=== PATIENT | male | born 1970 | race Caucasian/White ===

== ENCOUNTER 2017-05-12 15:29 | Emergency (ER) | payer SELFPAY ==
[~2017-05-12] VITALS: Ht 180.3 cm; Wt 127.0 kg
[~2017-05-12 15:29] MED LIST: ALBUTEROL 3 ML 33 ML INH; ALBUTEROL0.09 MG/A1 INH; AMOXICILLIN500 MG PO; ANAPROX DS550 MG PO; ATROVENT I0.5 MG/2.1 INH; B-1100 M1 PO; DARVOCET N 1001 TAB PO; DAYPRO600 M1 PO; FLAGYL500 MG PO; HYDROCODONE BIT1 T11 PO; KEFLEX500 MG PO; KETOROLAC10 MG PO; LEVAQUIN750 M1 PO; MEDROL DOSEPAK4 MG PO; MOTRIN800 MG PO; NAPROSYN500 MG PO; NEBULIZER; NKHM; PERCOCET 325 MG1 TA2 PO; PREDNISONE10 MG PO; PREDNISONE20 M1 PO; PRILOSEC40 M1 PO; SYMBICORT1 AE1 INH; VICODIN 5/500 505 MG PO; ZITHROMAX250 MG PO
[2017-05-12] MEDS ORDERED: COMBIVENT RESPIM4 GM INH (16:33)
[2017-05-12] MEDS ORDERED: PREDNISONE50 MG PO (16:33)
== END 2017-05-12 16:38 | disposition home or self-care (01) ==
LOC: ED 15:29
DX: J20.9 Acute bronchitis, unspecified (principal); J45.909 Unspecified asthma, uncomplicated; F17.210 Nicotine dependence, cigarettes, uncomplicated; K21.9 Gastro-esophageal reflux disease without esophagitis; E11.9 Type 2 diabetes mellitus without complications; M19.079 Primary osteoarthritis, unspecified ankle and foot; E66.9 Obesity, unspecified; Z68.39 Body mass index [BMI] 39.0-39.9, adult; Z79.899 Other long term (current) drug therapy

== ENCOUNTER 2017-06-07 05:23 | Emergency (ER) | payer SELFPAY ==
[~2017-06-07] VITALS: Ht 177.8 cm; Wt 117.9 kg
[~2017-06-07 05:23] MED LIST changes: +COMBIVENT RESPIM4 GM INH; +PREDNISONE50 MG PO
[2017-06-07] MEDS ORDERED: ZITHROMAX250 MG PO (06:12)
== END 2017-06-07 06:43 | disposition home or self-care (01) ==
LOC: ED 05:23
DX: J20.9 Acute bronchitis, unspecified (principal); E11.9 Type 2 diabetes mellitus without complications; K21.9 Gastro-esophageal reflux disease without esophagitis; M19.079 Primary osteoarthritis, unspecified ankle and foot; E66.9 Obesity, unspecified; F17.210 Nicotine dependence, cigarettes, uncomplicated; Z68.39 Body mass index [BMI] 39.0-39.9, adult; Z79.899 Other long term (current) drug therapy

== ENCOUNTER 2017-06-10 09:20 | Emergency (ER) | payer SELFPAY ==
[~2017-06-10] VITALS: Ht 177.8 cm; Wt 127.0 kg
[2017-06-10 10:14] LABS: BASO % 0.2 % (0.0-1.0); EOS % 0.2 % (1.0-4.0); HEMATOCRIT 43.7 % (42.0-52.0); HEMOGLOBIN 14.9 g/dl (14.0-18.0); LYMPH % 18.7 % (27.0-41.0); MEAN CORPUSCULAR HGB CONC 34.1 g/dl (33.0-37.0); MEAN PLATELET VOLUME 10.2 fl (9.6-12.3); MONO # 0.4 10*3/uL (0.1-1.0); NEUT # 3.8 10*3/uL (2.3-7.9); NEUT % 73.3 % (47.0-73.0); PLATELET COUNT AUTOMATED 133 10*3/uL (130-400); RED BLOOD COUNT 4.65 10*6/uL (4.50-5.90); RED CELL DISTRI WIDTH 13.4 % (0-14.5); WHITE BLOOD COUNT 5.1 10*3/uL (4.8-10.8)
[2017-06-10 10:30] LABS: ALBUMIN 3.4 gm/dl (3.1-4.5); ALKALINE PHOSPHATASE 52 U/L (45-117); BUN 15 mg/dl (7-24); CHLORIDE 97 mmol/L (98-107); CREATININE 1.18 mg/dL (0.70-1.30); LIPASE 376 U/L (73-393); POTASSIUM 3.7 mmol/L (3.5-5.1); SGOT/AST 86 IU/L (3-35); SGPT/ALT 51 U/L (12-78); SODIUM 133 mmol/L (136-145)
[2017-06-10] MEDS ORDERED: Zofran4 MG PO (12:03)
== END 2017-06-10 12:10 | disposition home or self-care (01) ==
LOC: ED 09:20
PROVIDERS: Emergency Medicine
DX: A08.4 Viral intestinal infection, unspecified (principal); R07.89 Other chest pain; E11.9 Type 2 diabetes mellitus without complications; K21.9 Gastro-esophageal reflux disease without esophagitis; M19.079 Primary osteoarthritis, unspecified ankle and foot; E66.9 Obesity, unspecified; F17.200 Nicotine dependence, unspecified, uncomplicated; Z68.39 Body mass index [BMI] 39.0-39.9, adult

== ENCOUNTER 2017-08-14 17:08 | Emergency (ER) | payer MEDICAID ==
[~2017-08-14] VITALS: Wt 127.0 kg
[~2017-08-14 17:08] MED LIST changes: +Zofran4 MG PO
[2017-08-14] MEDS ORDERED: NAPROSYN500 MG PO (17:19)
[2017-08-14] MEDS ORDERED: CHLORZOXAZONE500 M2 PO (17:19)
[2017-08-14] MEDS ORDERED: NORCO 5-325 TA1 EACH PO (18:31)
== END 2017-08-14 18:36 | disposition home or self-care (01) ==
LOC: ED 17:08
DX: S22.32XA Fracture of one rib, left side, initial encounter for closed fracture (principal); R03.0 Elevated blood-pressure reading, without diagnosis of hypertension; F17.210 Nicotine dependence, cigarettes, uncomplicated; G89.29 Other chronic pain; E11.9 Type 2 diabetes mellitus without complications; K21.9 Gastro-esophageal reflux disease without esophagitis; E66.9 Obesity, unspecified; Z68.39 Body mass index [BMI] 39.0-39.9, adult; Z79.899 Other long term (current) drug therapy; X50.1XXA Overexertion from prolonged static or awkward postures, initial encounter; Y93.89 Activity, other specified; Y92.89 Other specified places as the place of occurrence of the external cause; Y99.9 Unspecified external cause status

== ENCOUNTER → 2019-02-20 | Outpatient (CLI) | payer BC ==
[~2019-02-20] MED LIST changes: +CHLORZOXAZONE500 M2 PO; +NORCO 5-325 TA1 EACH PO
== END | disposition home or self-care (01) ==
LOC: LAB 13:10
DX: N52.1 Erectile dysfunction due to diseases classified elsewhere (principal)

== ENCOUNTER 2020-02-26 23:05 | Emergency (ER) | payer BC ==
[~2020-02-26] VITALS: Wt 113.4 kg
[2020-02-26 23:46] LABS: BASO # 0.1 10*3/uL (0.0-0.1); BASO % 0.8 % (0.0-1.0); EOS # 0.2 10*3/uL (0.0-0.4); HEMATOCRIT 51.2 % (42.0-52.0); LYMPH # 3.7 10*3/uL (1.3-4.4); LYMPH % 41.8 % (27.0-41.0); MEAN CELL VOLUME 95.7 fl (80.0-94.0); MEAN CORPUSCULAR HGB 31.6 pg (27.0-31.0); MEAN PLATELET VOLUME 9.9 fl (9.6-12.3); MONO # 0.7 10*3/uL (0.1-1.0); MONO % 7.3 % (3.0-9.0); NEUT # 4.3 10*3/uL (2.3-7.9); NEUT % 47.8 % (47.0-73.0); PLATELET COUNT AUTOMATED 223 10*3/uL (130-400); RED BLOOD COUNT 5.35 10*6/uL (4.50-5.90); RED CELL DISTRI WIDTH 13.5 % (0-14.5); WHITE BLOOD COUNT 8.9 10*3/uL (4.8-10.8)
[2020-02-27 00:01] LABS: ALBUMIN 3.9 gm/dl (3.1-4.5); ALKALINE PHOSPHATASE 69 U/L (45-117); BUN 4 mg/dl (7-24); CHLORIDE 112 mmol/L (98-107); CREATININE 0.86 mg/dL (0.70-1.30); POTASSIUM 3.3 mmol/L (3.5-5.1); SGOT/AST 32 IU/L (3-35); SGPT/ALT 50 U/L (12-78); SODIUM 140 mmol/L (136-145); TOTAL PROTEIN 8.2 gm/dL (6.4-8.2)
[2020-02-27 00:02] LABS: TROPONIN I < 0.015 ng/ml (<0.045)
== END 2020-02-27 14:09 | disposition home or self-care (01) ==
LOC: ED 23:05
PROVIDERS: Emergency Medicine
DX: F10.129 Alcohol abuse with intoxication, unspecified (principal); K21.9 Gastro-esophageal reflux disease without esophagitis; Z79.899 Other long term (current) drug therapy; Y90.8 Blood alcohol level of 240 mg/100 ml or more

== ENCOUNTER 2021-02-02 22:55 | Emergency (ER) | payer BC ==
[2021-02-02 23:23] LABS: BASO % 0.4 % (0.0-1.0); EOS # 0.1 10*3/uL (0.0-0.4); EOS % 1.1 % (1.0-4.0); HEMATOCRIT 47.4 % (42.0-52.0); LYMPH # 3.6 10*3/uL (1.3-4.4); LYMPH % 36.3 % (27.0-41.0); MEAN CELL VOLUME 97.1 fl (80.0-94.0); MEAN CORPUSCULAR HGB 32.6 pg (27.0-31.0); MEAN CORPUSCULAR HGB CONC 33.5 g/dl (33.0-37.0); MEAN PLATELET VOLUME 9.4 fl (9.6-12.3); MONO # 0.8 10*3/uL (0.1-1.0); MONO % 8.1 % (3.0-9.0); NEUT # 5.4 10*3/uL (2.3-7.9); NEUT % 53.7 % (47.0-73.0); PLATELET COUNT AUTOMATED 220 10*3/uL (130-400); RED BLOOD COUNT 4.88 10*6/uL (4.50-5.90); RED CELL DISTRI WIDTH 13.4 % (0-14.5)
[2021-02-02 23:41] LABS: ALKALINE PHOSPHATASE 59 U/L (45-117); BUN 7 mg/dl (7-24); CHLORIDE 106 mmol/L (98-107); CREATININE 0.94 mg/dL (0.70-1.30); POTASSIUM 3.6 mmol/L (3.5-5.1); SGOT/AST 24 IU/L (3-35); SGPT/ALT 49 U/L (12-78); SODIUM 139 mmol/L (136-145); TOTAL PROTEIN 8.2 gm/dL (6.4-8.2)
== END 2021-02-03 02:26 | disposition left against medical advice (07) ==
LOC: ED 22:55
PROVIDERS: Internal Medicine
DX: F10.129 Alcohol abuse with intoxication, unspecified (principal); F17.210 Nicotine dependence, cigarettes, uncomplicated; Y90.9 Presence of alcohol in blood, level not specified

== ENCOUNTER 2021-02-03 03:24 | Emergency (ER) | payer BC | END 2021-02-03 11:08 | disposition home or self-care (01) | LOC: ED 03:24 | DX: F10.129 Alcohol abuse with intoxication, unspecified (principal); R42 Dizziness and giddiness; R11.0 Nausea; F17.210 Nicotine dependence, cigarettes, uncomplicated; Y90.9 Presence of alcohol in blood, level not specified ==

== ENCOUNTER → 2021-09-19 | Outpatient (CLI) | payer SELFPAY ==
[2021-09-19 12:03] LABS: TOTAL PROTEIN 7.6 gm/dL (6.4-8.2)
[2021-09-19 12:04] LABS: FREE T4 0.89 ng/dl (0.76-1.46)
[2021-09-19 12:10] LABS: THYROID STIM HORMONE (HS) 4.38 uIU/ml (0.358-4.75)
== END | disposition home or self-care (01) ==
LOC: LAB 11:25
PROVIDERS: ATTEND Psychiatry & Neurology Psychiatry
DX: Z51.81 Encounter for therapeutic drug level monitoring (principal); Z79.899 Other long term (current) drug therapy; F41.9 Anxiety disorder, unspecified; F10.10 Alcohol abuse, uncomplicated

== ENCOUNTER 2021-11-05 13:30 | Emergency (ER) | payer MEDICAID | END 2021-11-05 14:45 | disposition left against medical advice (07) | LOC: ED 13:30 | DX: R05.9 Cough, unspecified (principal); F17.210 Nicotine dependence, cigarettes, uncomplicated ==

== ENCOUNTER → 2021-12-05 | Outpatient (CLI) | payer MEDICAID ==
[2021-12-05 10:11] LABS: HEMATOCRIT 44.8 % (42.0-52.0); MEAN CELL VOLUME 97.2 fl (80.0-94.0); MEAN CORPUSCULAR HGB 32.3 pg (27.0-31.0); MEAN CORPUSCULAR HGB CONC 33.3 g/dl (33.0-37.0); RED BLOOD COUNT 4.61 10*6/uL (4.50-5.90); RED CELL DISTRI WIDTH 13.2 % (0-14.5); WHITE BLOOD COUNT 6.8 10*3/uL (4.8-10.8)
[2021-12-05 10:38] LABS: ALKALINE PHOSPHATASE 71 U/L (45-117); BUN 18 mg/dl (7-24); CHLORIDE 107 mmol/L (98-107); CHOLESTEROL 136 mg/dL (<200); CREATININE 0.98 mg/dL (0.70-1.30); LDL CHOLESTEROL 67 mg/dL (9-159); POTASSIUM 4.1 mmol/L (3.5-5.1); SGOT/AST 20 IU/L (3-35); SGPT/ALT 40 U/L (12-78); SODIUM 138 mmol/L (136-145); TOTAL PROTEIN 7.3 gm/dL (6.4-8.2); TRIGLYCERIDES 161 mg/dl (<150)
[2021-12-07 16:06] LABS: TESTOSTERONE FREE, (DIRECT) 10.1 pg/mL (7.2-24.0)
== END ==
LOC: LAB 09:45
PROVIDERS: ATTEND Physician Assistant
DX: E29.1 Testicular hypofunction (principal); F17.210 Nicotine dependence, cigarettes, uncomplicated; K21.9 Gastro-esophageal reflux disease without esophagitis; E66.01 Morbid (severe) obesity due to excess calories

== ENCOUNTER 2022-01-15 02:49 | Emergency (ER) | payer MEDICAID ==
[~2022-01-15] VITALS: Ht 180.3 cm; Wt 121.6 kg
[2022-01-15 03:05] LABS: BASO # 0.1 10*3/uL (0.0-0.1); BASO % 0.8 % (0.0-1.0); EOS # 0.2 10*3/uL (0.0-0.4); EOS % 2.6 % (1.0-4.0); HEMATOCRIT 48.4 % (42.0-52.0); LYMPH # 3.8 10*3/uL (1.3-4.4); MEAN CELL VOLUME 92.7 fl (80.0-94.0); MEAN CORPUSCULAR HGB 31.6 pg (27.0-31.0); MEAN CORPUSCULAR HGB CONC 34.1 g/dl (33.0-37.0); MEAN PLATELET VOLUME 9.3 fl (9.6-12.3); MONO # 0.8 10*3/uL (0.1-1.0); MONO % 9.4 % (3.0-9.0); NEUT # 3.6 10*3/uL (2.3-7.9); NEUT % 41.8 % (47.0-73.0); PLATELET COUNT AUTOMATED 247 10*3/uL (130-400); RED BLOOD COUNT 5.22 10*6/uL (4.50-5.90); RED CELL DISTRI WIDTH 13.2 % (0-14.5); WHITE BLOOD COUNT 8.5 10*3/uL (4.8-10.8)
[2022-01-15 03:20] LABS: ACT PARTIAL THROMBO TIME 28.5 SECONDS (20.0-32.1)
[2022-01-15 03:37] LABS: BILIRUBIN Negative (Negative); BLOOD Negative (Negative); CLARITY Clear (Clear); COLOR Yellow (Yellow); GLUCOSE Negative (Negative); KETONE Negative (Negative); LEUKO ESTERASE Negative (Negative); NITRITE Negative (Negative); PH 5.5 (4.5-8.0); SPECIFIC GRAVITY <= 1.005 (1.001-1.030); UROBILINOGEN 0.2 E.U./dl (0.0-1.0)
[2022-01-15 03:40] LABS: ALKALINE PHOSPHATASE 68 U/L (45-117); BUN 6 mg/dl (7-24); CHLORIDE 106 mmol/L (98-107); CREATININE 0.94 mg/dL (0.70-1.30); POTASSIUM 3.7 mmol/L (3.5-5.1); SGOT/AST 34 IU/L (3-35); SGPT/ALT 52 U/L (12-78); SODIUM 137 mmol/L (136-145); TOTAL PROTEIN 8.3 gm/dL (6.4-8.2)
[2022-01-15 03:48] LABS: WBC 0-2 wbc/hpf (0-5)
== END 2022-01-15 04:37 | disposition left against medical advice (07) ==
LOC: ED 02:49
PROVIDERS: Emergency Medicine; Obstetrics & Gynecology
DX: T80.89XA Other complications following infusion, transfusion and therapeutic injection, initial encounter (principal); R50.9 Fever, unspecified; F41.9 Anxiety disorder, unspecified; R06.02 Shortness of breath; F17.210 Nicotine dependence, cigarettes, uncomplicated; Y92.89 Other specified places as the place of occurrence of the external cause

== ENCOUNTER → 2022-02-03 | Outpatient (CLI) | payer MEDICAID ==
[2022-02-03 09:40] LABS: TOTAL PROTEIN 7.7 gm/dL (6.4-8.2)
[2022-02-03 09:46] LABS: THYROID STIM HORMONE (HS) 4.59 uIU/ml (0.358-4.75)
[2022-02-03 16:44] LABS: BILIRUBIN 1+ (Negative); BLOOD Negative (Negative); CLARITY Clear (Clear); COLOR Dark Yellow (Yellow); GLUCOSE Negative (Negative); KETONE Trace (Negative); LEUKO ESTERASE Negative (Negative); NITRITE Negative (Negative); SPECIFIC GRAVITY >= 1.030 (1.001-1.030)
[2022-02-03 16:53] LABS: MUCOUS 2+; RBC 0-2 rbc/hpf (0-2)
[2022-02-04 04:06] LABS: PROLACTIN 8.2 ng/mL (4.0-15.2); SEX HORMONE BINDING GLOBULIN 21.4 nmol/L (19.3-76.4)
== END | disposition home or self-care (01) ==
LOC: LAB 08:52
PROVIDERS: ATTEND Nurse Practitioner Family
DX: N42.9 Disorder of prostate, unspecified (principal); E29.1 Testicular hypofunction

== ENCOUNTER → 2022-03-11 | Outpatient (CLI) | payer MEDICAID | END | disposition home or self-care (01) | LOC: CT 03-05 08:00 | PROVIDERS: ATTEND Podiatrist | DX: M19.072 Primary osteoarthritis, left ankle and foot (principal); M19.071 Primary osteoarthritis, right ankle and foot; M25.771 Osteophyte, right ankle; M25.772 Osteophyte, left ankle; M79.9 Soft tissue disorder, unspecified ==

== ENCOUNTER 2023-11-15 11:38 | Emergency (ER) | payer MEDICAID ==
[~2023-11-15] VITALS: Ht 180.3 cm; Wt 136.1 kg
[2023-11-15] MEDS ORDERED: methylPREDNISolone sod succ 125 MG VIAL IM ONE (14:20)
[2023-11-15] MEDS ORDERED: Ketorolac Tromethamine 30 MG/ML VIAL IM ONE (14:20)
[2023-11-15] MEDS ORDERED: CYCLOBENZAPRINE5 M3 PO (14:20)
== END 2023-11-15 14:25 | disposition home or self-care (01) ==
LOC: ED 11:38
DX: M54.41 Lumbago with sciatica, right side (principal); M25.561 Pain in right knee; M25.551 Pain in right hip; K21.9 Gastro-esophageal reflux disease without esophagitis; I10 Essential (primary) hypertension; F17.210 Nicotine dependence, cigarettes, uncomplicated; F10.10 Alcohol abuse, uncomplicated; Z98.890 Other specified postprocedural states

== ENCOUNTER → 2023-12-06 | Outpatient (CLI) | payer MEDICAID ==
[~2023-12-06] MED LIST changes: +CYCLOBENZAPRINE5 M3 PO
== END ==
LOC: MRI 02:47
PROVIDERS: ATTEND Nurse Practitioner Acute Care
DX: M51.17 Intervertebral disc disorders with radiculopathy, lumbosacral region (principal); M47.27 Other spondylosis with radiculopathy, lumbosacral region

== ENCOUNTER 2024-02-07 20:41 | Emergency (ER) | payer MEDICAID ==
[~2024-02-07] VITALS: Ht 180.3 cm; Wt 133.4 kg
[2024-02-07] MEDS ORDERED: SODIUM CHLORIDE 0.9% 1,000 ML IV ONE ×2 (20:55→23:30)
[2024-02-07] MEDS ORDERED: Thiamine 200 MG/2 ML VIAL IV ONE (20:55)
[2024-02-07 21:09] LABS: BASO % 0.5 % (0.0-1.0); EOS # 0.1 10*3/uL (0.0-0.4); EOS % 1.7 % (1.0-4.0); HEMATOCRIT 48.7 % (42.0-52.0); LYMPH # 3.1 10*3/uL (1.3-4.4); LYMPH % 40.8 % (27.0-41.0); MEAN CELL VOLUME 95.1 fl (80.0-94.0); MEAN CORPUSCULAR HGB 31.6 pg (27.0-31.0); MEAN CORPUSCULAR HGB CONC 33.3 g/dl (33.0-37.0); MEAN PLATELET VOLUME 9.4 fl (9.6-12.3); MONO # 0.6 10*3/uL (0.1-1.0); MONO % 7.5 % (3.0-9.0); NEUT # 3.7 10*3/uL (2.3-7.9); NEUT % 49.1 % (47.0-73.0); PLATELET COUNT AUTOMATED 230 10*3/uL (130-400); RED BLOOD COUNT 5.12 10*6/uL (4.50-5.90); RED CELL DISTRI WIDTH 13.2 % (0-14.5); WHITE BLOOD COUNT 7.6 10*3/uL (4.8-10.8)
[2024-02-07] MEDS ORDERED: Ondansetron Hydrochloride 4 MG TAB SL ONE (21:45)
[2024-02-07 21:56] LABS: BUN 6 mg/dl (9-23); CHLORIDE 104 mmol/L (98-107); POTASSIUM 3.5 mmol/L (3.4-5.1)
[2024-02-07 21:59] LABS: ETHYL ALCOHOL 346.4 mg/dl (<3)
[2024-02-15] MEDS ORDERED: OMEPRAZOLE MAGN20 MG PO (12:56)
[2024-02-15] MEDS ORDERED: CEPHALEXIN500 M1 PO (16:15)
[2024-02-15] MEDS ORDERED: GOOD NEIGHBOR M25 M1 PO (17:06)
[2024-02-15] MEDS ORDERED: Ondansetron4 MG PO (17:06)
== END 2024-02-08 08:31 | disposition home or self-care (01) ==
LOC: ED 20:41
PROVIDERS: Internal Medicine
DX: R42 Dizziness and giddiness (principal); K21.9 Gastro-esophageal reflux disease without esophagitis; I10 Essential (primary) hypertension; F10.129 Alcohol abuse with intoxication, unspecified; R11.0 Nausea; F17.210 Nicotine dependence, cigarettes, uncomplicated; Z98.890 Other specified postprocedural states; Y90.5 Blood alcohol level of 100-119 mg/100 ml

== ENCOUNTER → 2024-02-22 | Outpatient (CLI) | payer MEDICAID ==
[~2024-02-22] MED LIST changes: +CEPHALEXIN500 M1 PO; +GOOD NEIGHBOR M25 M1 PO; +OMEPRAZOLE MAGN20 MG PO; +Ondansetron4 MG PO
== END | disposition home or self-care (01) ==
LOC: LAB 15:06
PROVIDERS: ATTEND Family Medicine
DX: E11.9 Type 2 diabetes mellitus without complications (principal)

== ENCOUNTER → 2024-06-20 | Outpatient (CLI) | payer OTHER ==
[2024-06-20 09:53] LABS: HEMATOCRIT 47.3 % (42.0-52.0); MEAN CELL VOLUME 95.7 fl (80.0-94.0); MEAN CORPUSCULAR HGB 31.6 pg (27.0-31.0); MEAN PLATELET VOLUME 10.2 fl (9.6-12.3); RED BLOOD COUNT 4.94 10*6/uL (4.50-5.90); RED CELL DISTRI WIDTH 12.5 % (0-14.5); WHITE BLOOD COUNT 7.4 10*3/uL (4.8-10.8)
[2024-06-20 10:36] LABS: ALKALINE PHOSPHATASE 91 U/L (46-116); BUN 16 mg/dl (9-23); CHLORIDE 99 mmol/L (98-107); CHOLESTEROL 157 mg/dL (<200); LDL CHOLESTEROL 93 mg/dL (9-159); LIPASE 54 U/L (12-53); POTASSIUM 3.9 mmol/L (3.4-5.1); SGPT/ALT 53 U/L (5-49); TOTAL PROTEIN 7.7 gm/dL (6.0-8.0); TRIGLYCERIDES 131 mg/dl (<150)
== END | disposition home or self-care (01) ==
LOC: LAB 09:28
PROVIDERS: ATTEND Nurse Practitioner Family
DX: R18.8 Other ascites (principal)

== ENCOUNTER 2024-10-25 03:22 | Emergency (ER) | payer OTHER ==
[~2024-10-25] VITALS: Ht 177.8 cm; Wt 129.3 kg
[2024-10-25] MEDS ORDERED: Thiamine 200 MG/2 ML VIAL IV ONE (03:40)
[2024-10-25] MEDS ORDERED: SODIUM CHLORIDE 0.9% 1,000 ML IV ONE (03:40)
[2024-10-25 03:51] LABS: BASO # 0.1 10*3/uL (0.0-0.1); BASO % 0.6 % (0.0-1.0); EOS # 0.1 10*3/uL (0.0-0.4); EOS % 1.1 % (1.0-4.0); HEMATOCRIT 50.8 % (42.0-52.0); MEAN CELL VOLUME 93.2 fl (80.0-94.0); MEAN CORPUSCULAR HGB CONC 33.3 g/dl (33.0-37.0); MEAN PLATELET VOLUME 9.4 fl (9.6-12.3); MONO # 0.6 10*3/uL (0.1-1.0); MONO % 6.5 % (3.0-9.0); NEUT # 5.4 10*3/uL (2.3-7.9); NEUT % 54.7 % (47.0-73.0); PLATELET COUNT AUTOMATED 236 10*3/uL (130-400); RED BLOOD COUNT 5.45 10*6/uL (4.50-5.90); RED CELL DISTRI WIDTH 13.1 % (0-14.5); WHITE BLOOD COUNT 9.8 10*3/uL (4.8-10.8)
[2024-10-25] MEDS ORDERED: Ondansetron Hydrochloride 4 MG/2 ML VIAL IV ONE (04:15)
[2024-10-25 04:20] LABS: ALKALINE PHOSPHATASE 77 U/L (46-116); BUN 6 mg/dl (9-23); CHLORIDE 104 mmol/L (98-107); ETHYL ALCOHOL 286.9 mg/dl (<3); POTASSIUM 3.9 mmol/L (3.4-5.1); SGPT/ALT 56 U/L (5-49); TOTAL PROTEIN 8.3 gm/dL (6.0-8.0)
== END 2024-10-25 05:21 | disposition left against medical advice (07) ==
LOC: ED 03:22
PROVIDERS: Internal Medicine
DX: F10.129 Alcohol abuse with intoxication, unspecified (principal); E11.65 Type 2 diabetes mellitus with hyperglycemia; R74.01 Elevation of levels of liver transaminase levels; R00.0 Tachycardia, unspecified; I10 Essential (primary) hypertension; K21.9 Gastro-esophageal reflux disease without esophagitis; F17.200 Nicotine dependence, unspecified, uncomplicated; Z79.899 Other long term (current) drug therapy; Z98.890 Other specified postprocedural states; Y90.8 Blood alcohol level of 240 mg/100 ml or more

== ENCOUNTER 2024-12-12 13:43 | Emergency (ER) | payer SELFPAY ==
[~2024-12-12] VITALS: Ht 180.3 cm; Wt 127.0 kg
[2024-12-12] MEDS ORDERED: OMEPRAZOLE40 MG PO (13:59)
== END 2024-12-12 14:01 | disposition left against medical advice (07) ==
LOC: ED 13:43
DX: Z04.89 Encounter for examination and observation for other specified reasons (principal); Z53.21 Procedure and treatment not carried out due to patient leaving prior to being seen by health care provider

== ENCOUNTER 2025-02-13 21:19 | Emergency (ER) | payer SELFPAY ==
[~2025-02-13] VITALS: Ht 172.7 cm; Wt 127.0 kg
[~2025-02-13 21:19] MED LIST changes: +OMEPRAZOLE40 MG PO
[2025-02-13 21:47] LABS: BILIRUBIN Negative (Negative); BLOOD Negative (Negative); CLARITY Clear (Clear); COLOR Yellow (Yellow); KETONE Negative (Negative); LEUKO ESTERASE Negative (Negative); NITRITE Negative (Negative); PH 5.0 (4.5-8.0); SPECIFIC GRAVITY <= 1.005 (1.001-1.030); UROBILINOGEN 0.2 E.U./dl (0.0-1.0)
[2025-02-13 21:54] LABS: EPITHELIAL CELLS 0-2; WBC 0-2 wbc/hpf (0-5)
== END 2025-02-13 22:09 | disposition left against medical advice (07) ==
LOC: ED 21:19
PROVIDERS: Internal Medicine
DX: N50.812 Left testicular pain (principal); F10.129 Alcohol abuse with intoxication, unspecified; E66.9 Obesity, unspecified; R27.0 Ataxia, unspecified; F17.210 Nicotine dependence, cigarettes, uncomplicated; Z53.21 Procedure and treatment not carried out due to patient leaving prior to being seen by health care provider; Z68.30 Body mass index [BMI] 30.0-30.9, adult; Y90.9 Presence of alcohol in blood, level not specified